=== PATIENT | male | born 1945 | race Caucasian/White ===

== ENCOUNTER 2019-05-18 11:07 | Observation (INO) ==
[2019-05-18 12:16] LABS: Basophils % 0.5 %; Eosinophils # 0.2 K/mcL (0.0-0.6); Eosinophils % 3.5 %; Hematocrit 42.9 % (37.5-50.1); Hemoglobin 14.2 g/dL (12.9-16.9); Immature Granulocytes % 0.2 % (0-4); Lymphocytes # 1.2 K/mcL (0.6-4.6); Lymphocytes % 18.8 %; Mean Corpuscular HGB Conc 33.1 g/dL (31.6-35.5); Mean Corpuscular Hemoglobin 31.9 pg (28.0-33.3); Mean Corpuscular Volume 96.4 fL (83.0-100.0); Mean Platelet Volume 9.6 fL (9.4-12.4); Monocytes # 0.7 K/mcL (0.0-1.3); Monocytes % 10.7 %; Neutrophils # 4.2 K/mcL (1.6-8.9); Platelet Count 208 K/mcL (140-400); Red Blood Count 4.45 M/mcL (4.19-5.50); Red Cell Distribution Width 12.9 % (11.5-14.5); Segmented Neutrophils % 66.3 %; White Blood Count 6.3 K/mcL (4.3-11.1)
[2019-05-18 12:34] LABS: BUN/Creatinine Ratio 17 (6-26); Blood Urea Nitrogen 17 mg/dL (8-23); Calcium 9.5 mg/dL (8.6-10.3); Carbon Dioxide 28 mEq/L (23-29); Chloride 103 mEq/L (98-107); Glucose 85 mg/dL (70-105); Magnesium 2.1 mg/dL (1.6-2.6); Osmolality,Calculated 285 (280-300); Phosphorous 2.9 mg/dL (2.7-4.5); Potassium 4.1 mEq/L (3.5-5.1); Sodium 137 mEq/L (136-145); Troponin I < 0.03 ng/mL (< 0.04); eGFR For African Americans > 60 (> 60); eGFR For Non-African Americans > 60 (> 60)
[2019-05-18 12:36] LABS: Bilirubin,Urine Negative (Negative); Blood,Urine Negative (Negative); Clarity,Urine Clear (Clear); Color,Urine Yellow (Yellow); Glucose,Urine (UA) Normal (Normal); Ketones,Urine Negative (Negative); Leukocyte Esterase,Urine Negative (Negative); Nitrite,Urine Negative (Negative); PH,Urine 5.5 pH Units (5.0-8.0); Protein,Urine Negative (Neg-Trace); Urobilinogen,Urine Normal (Normal)
[2019-05-18 12:48] LABS: Thyroid Stimulating Hormone 2.433 mcIU/mL (0.340-5.600)
[2019-05-18] MEDS ORDERED: Naloxone 0.4 MG/ML INJ IVP PRN ×2 (13:24→14:06)
[2019-05-18] MEDS ORDERED: Tobramycin/Dex Opth DROPS 2.5 ML BOTTLE RIGHT EYE SCH (18:15)
[2019-05-18] MEDS: Tobramycin/Dex Opth DROPS 2.5 ML BOTTLE BOTH EYES SCH ×2 (19:37→23:56)
[2019-05-18] MEDS ORDERED: traZODone 50 MG TABLET PO PRN (21:00)
[2019-05-19] MEDS: traZODone 50 MG TABLET PO PRN ×2 (02:49→23:16)
[2019-05-19] MEDS ORDERED: Furosemide 20 MG TABLET PO SCH ×2 (09:00)
[2019-05-19] MEDS ORDERED: Rivastigmine Patch 4.6 MG PATCH.TD24 TD SCH ×2 (09:00)
[2019-05-19] MEDS: Tobramycin/Dex Opth DROPS 2.5 ML BOTTLE BOTH EYES SCH ×3 (09:14→23:16)
[2019-05-20] MEDS: Tobramycin/Dex Opth DROPS 2.5 ML BOTTLE BOTH EYES SCH ×3 (08:51→23:23)
[2019-05-21] MEDS: Tobramycin/Dex Opth DROPS 2.5 ML BOTTLE BOTH EYES SCH ×2 (08:06→15:31)
[2019-05-22] MEDS: Tobramycin/Dex Opth DROPS 2.5 ML BOTTLE BOTH EYES SCH ×2 (00:51→08:36)
[2019-05-22 07:20] VITALS: BP 114/67
== END 2019-05-22 12:25 ==
LOC: INPPIK 11:07 → EMEROOPIK 11:07 → INPPIK 14:24
PROVIDERS: ADMIT Internal Medicine; ATTEND Internal Medicine